=== PATIENT | male | born 1985 | race Caucasian/White ===

== ENCOUNTER 2018-04-16 20:31 | Emergency (ER) | payer OTHER ==
[2018-04-16 20:38] VITALS: BP 137/77
[2018-04-16] MEDS ORDERED: LIDOCAINE 2% 10 ML MDV SUBQ STA (21:03)
--- NOTE | 2018-04-16 21:15 | ED Physician Documentation ---
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 Hand was crushed. States increasing pain over the past 2 hours. Tetanus is up-to-date. He is right- handed. Pain in L 4th and 5th digits Review of Systems Neurologic: denies: Focal weakness, Numbness PD PAST MEDICAL HISTORY - Past Medical History Past Medical History: No - Past Surgical History Past Surgical History: No - Present Medications Home Medications: Ambulatory Orders Medication Instructions Recorded Confirmed Ibuprofen [Motrin] 800 mg PO Q8H PRN #30 tablet 04/16/18 Varenicline Tartrate [Chantix] 0.5 mg PO BID 04/16/18 04/16/18 - Allergies Allergies/Adverse Reactions: Allergies Allergy/AdvReac Type Severity Reaction Status Date / Time No Known Drug Allergies Allergy Verified 04/16/18 20:38 - Social History Does the pt smoke?: No Smoking Status: Never smoker Does the pt drink ETOH?: No Does the pt have substance abuse?: No - Immunizations Immunizations are current?: Yes Immunizations: TDAP current <10years - POLST Patient has POLST: No PD ED PE NORMAL - Vitals Vital signs reviewed: Yes - General General: Alert and oriented X 3 - HEENT HEENT: Moist mucous membranes - Derm Derm: Warm and dry - Extremities Extremities: Other (L hand - Diffuse tenderness over the distal aspects of the fourth and fifth digit of the left hand. There is a left fifth digit subungual hematoma. Also superficial laceration to the pad of the left fifth digit. Not bleeding. NVI) - Neuro Neuro: Alert and oriented X 3 Results - Vitals Vitals: Vital Signs - 24 hr 04/16/18 20:35 Temperature 36.3 C L Heart Rate 95 Respiratory 16 Rate Blood Pressure 137/77 H O2 Saturation 100 - Rads (name of study) L hand xray Radiology: Prelim report reviewed, EMP read contemporaneously, See rad report ( normal) PD MEDICAL DECISION MAKING - ED course Complexity details: reviewed results, re-evaluated patient, considered differential, d/w patient, d/w family ED course: Patient is a 32-year-old male with a left hand injury. 2% lidocaine was used for trans-thecal blocks of the fourth and fifth digits with excellent anesthesia. The fingers were then cleansed. The subungual hematoma was evacuated with electrocautery. Tolerated well. There is no laceration to repair. This is a superficial injury. Bacitracin applied and wound bandaging/ splint was applied. We will have the patient follow-up with his doctor for further care. Warnings of infection and instructions on wound care given at bedside. Also counseled on how to minimize scarring. Patient counseled regarding signs and symptoms for which I believe and urgent re-evaluation would be necessary. Patient with good understanding of and agreement to plan and is comfortable going home at this time This document was made in part using voice recognition software. While efforts are made to proofread this document, sound alike and grammatical errors may occur. - Sepsis Event Vital Signs: Vital Signs - 24 hr 04/16/18 20:35 Temperature 36.3 C L Heart Rate 95 Respiratory 16 Rate Blood Pressure 137/77 H O2 Saturation 100 Departure - Departure Disposition: 01 Home, Self Care Clinical Impression: Subungual hematoma Crushed finger Qualifiers: Encounter type: initial encounter Qualified Code(s): S67.10XA - Crushing injury of unspecified finger(s), initial encounter Condition: Good Instructions: ED Crush Injury Finger No Fx, ED Hematoma Subungual Follow-Up: your,doctor in 5 days for wound check [Other] Prescriptions: Ibuprofen [Motrin] 800 mg PO Q8H PRN #30 tablet PRN Reason: PAIN &/OR FEVER Comments: Return if you worsen. Keep the wound clean. Return for redness, swelling or drainage from the wound. Follow-up with your doctor in 4-5 days for a wound check. Discharge Date/Time: 04/16/18 22:17
[2018-04-16] MEDS ORDERED: LIDOCAINE 2% 10 ML MDV ONE (21:16)
[2018-04-16] MEDS ORDERED: IBUPROFEN 800 MG TABLET PO STA (21:55)
[2018-04-16] MEDS ORDERED: BACITRACIN OINT TOP STA (21:55)
--- NOTE | 2018-04-16 22:06 | XRAY Preliminary Report ---
Exam: XR HAND 3 VIEW LT IMPRESSION: 1. No acute fracture or dislocation seen. [facility] SITE ID: [id number]
--- NOTE | 2018-04-16 22:06 | XRAY Report ---
EXAM: LEFT HAND RADIOGRAPHY EXAM DATE: 04/16/2018 09:54 PM. CLINICAL HISTORY: Pain after injury. COMPARISON: None. TECHNIQUE: 3 views. FINDINGS: Bones: No fracture seen. Joints: No dislocation. Joint spaces appear intact. Soft Tissues: Mild soft tissue swelling. IMPRESSION: 1. No acute fracture or dislocation seen. [facility] Referring Provider Line: [phone] SITE ID: [id number]
[2018-04-16] MEDS ORDERED: HYDROcod/ACETAM 5/325 MG TABLET PO STA (22:07)
== END 2018-04-16 22:17 | disposition home or self-care (01) ==
LOC: ED 20:31
DX: S60.012A Contusion of left thumb without damage to nail, initial encounter (principal); S67.10XA Crushing injury of unspecified finger(s), initial encounter; S61.012A Laceration without foreign body of left thumb without damage to nail, initial encounter; W23.0XXA Caught, crushed, jammed, or pinched between moving objects, initial encounter
CPT/HCPCS: 11740; 73130; 99283; A9270

== ENCOUNTER 2024-07-03 14:12 | Outpatient (CLI) | payer OTHER ==
--- NOTE | 2024-07-03 19:46 | MRI Report ---
PROCEDURE: Cervical Spine WO INDICATIONS: CERVICALGIA TECHNIQUE: Noncontrast sagittal T1 spin echo and T2 fast spin echo, sagittal STIR, foraminal oblique sagittal T2 fast spin echo, and axial gradient echo or T2 fast spin echo through the cervical spine. COMPARISON: None. FINDINGS: Image quality: Excellent. Alignment and Curvature: There is normal bony alignment. Bone Marrow: There is no marrow edema. No acute vertebral body compression fracture. Spinal Cord: Visualized spinal cord has normal size and signal. No cerebellar tonsillar herniation. Paraspinous Soft Tissues: No paravertebral masses. Prevertebral soft tissues are normal in thicknes s. C2-C3: Normal in appearance. C3-C4: Loss of the signal. Mild diffuse disc bulge. No significant central canal stenosis. Mild lef t-sided neural foraminal narrowing is seen.. C4-C5: Loss of the signal. Broad-based disc bulge with mild flattening of thecal sac anteriorly. No significant neural foraminal narrowing. C5-C6: Loss of disc signal and disc height. Broad-based, more left-sided disc bulge is seen causing mild central canal stenosis and mild to moderate left-sided neural foraminal narrowing. C6-C7: Loss of the signal. No significant disc bulge, canal stenosis or neural foraminal narrowing. C7-T1: Normal in appearance. IMPRESSION: 1. Mild degenerative disc disease at C3-4 through C6-7 levels causing mild central canal stenosis and left-sided neural foraminal narrowing as described above. 2. No acute compression fracture or spondylolisthesis. 3. No abnormal cervical spinal cord signal. Reviewed by: Mikal Whitt MD on 07/03/2024 7:45 PM PDT Approved by: Mikal Whitt MD on 07/03/2024 7:45 PM PDT Station ID: [id number]
== END 2024-07-03 14:13 | disposition home or self-care (01) ==
LOC: DI 14:12
PROVIDERS: ATTEND Preventive Medicine Aerospace Medicine
DX: M50.31 Other cervical disc degeneration, high cervical region (principal); M48.02 Spinal stenosis, cervical region